=== PATIENT | male | born 1955 | race Two or more races ===

== ENCOUNTER → 2016-10-08 | Outpatient (CLI) | payer BC ==
[~2016-10-08] MED LIST: ASPI-496 PO; ATEN25TA PO; LOSA25TA5 PO; NIAC500T9 PO
[2016-10-08 12:02] LABS: ASPARTATE AMINO TRANSFERASE 22 U/L (15-37); BLOOD UREA NITROGEN 18 mg/dL (7-18)
== END | disposition home or self-care (01) ==
LOC: MERGE 10:41 → STAR 10:41
PROVIDERS: ATTEND Surgery
DX: Z01.818 Encounter for other preprocedural examination (principal); Z12.11 Encounter for screening for malignant neoplasm of colon
CPT/HCPCS: 36415; 80053; 93005

== ENCOUNTER 2016-10-19 08:01 | Day surgery (SDC) | payer BC ==
[~2016-10-19] VITALS: Ht 180.3 cm; Wt 170.0 kg
[2016-10-19 08:34] VITALS: BP 135/86
[2016-10-19] MEDS ORDERED: LACTATED RINGERS 1,000 ML IV SCH (08:46)
[2016-10-19] MEDS ORDERED: FENTANYL PF 100 MCG/2ML ONE (10:08)
[2016-10-19] MEDS ORDERED: PROPOFOL 10 MG/ML, 50ML ONE (10:13)
[2016-10-19] MEDS ORDERED: ONDANSETRON 2MG/ML, 2ML IVPush PRN (11:00)
[2016-10-19] MEDS ORDERED: METOPROLOL 1 MG/ML, 5ML IV PRN (11:00)
[2016-10-19] MEDS ORDERED: METOCLOPRAMIDE 5 MG/ML, 2ML IV PRN (11:00)
[2016-10-19] MEDS ORDERED: ALBUTEROL/IPRATROPIUM 2.5MG/0.5MG, 3 ML NPPB PRN (11:00)
[2016-10-19] MEDS ORDERED: LABETALOL 5MG/ML, 20ML IV PRN (11:00)
[2016-10-19] MEDS ORDERED: HYDROmorphone 1 MG/ML, 1ML IV PRN (11:00)
[2016-10-19] MEDS ORDERED: ACETAMINOPHEN 325 MG TABLET PO PRN (11:00)
[2016-10-19] MEDS ORDERED: FENTANYL PF 100 MCG/2ML IV PRN (11:00)
[2016-10-19] MEDS ORDERED: ALBUTEROL SULFATE 2.5 MG/3 ML NPPB PRN (11:00)
== END 2016-10-19 12:10 ==
LOC: EDSEX → OUT 08:01
PROVIDERS: ATTEND Internal Medicine Gastroenterology
DX: Z12.11 Encounter for screening for malignant neoplasm of colon (principal); K57.30 Diverticulosis of large intestine without perforation or abscess without bleeding; K64.8 Other hemorrhoids; I10 Essential (primary) hypertension; F32.9 Major depressive disorder, single episode, unspecified; E78.00 Pure hypercholesterolemia, unspecified; E66.9 Obesity, unspecified; Z68.43 Body mass index [BMI] 50.0-59.9, adult; Z79.82 Long term (current) use of aspirin; Z72.89 Other problems related to lifestyle
CPT/HCPCS: 45378; J2704; J3010; J7120